=== PATIENT | female | born 1975 | race Caucasian/White ===

== ENCOUNTER 2018-03-22 06:45 | Inpatient (IN) | payer MEDICAID ==
[2018-03-22] MEDS ORDERED: CARBOPROST 250 MCG INJ IM ×2 (08:30→16:00)
[2018-03-22] MEDS ORDERED: IBUPROFEN 600 MG TAB PO (08:30)
[2018-03-22] MEDS ORDERED: BUTORPHANOL 2 MG INJ IV (08:30)
[2018-03-22] MEDS ORDERED: HYDROCODONE/APAP (5/325) TAB PO (08:30)
[2018-03-22] MEDS ORDERED: METHYLERGONOVINE 0.2 MG INJ IM ×2 (08:30→16:00)
[2018-03-22] MEDS ORDERED: MISOPROSTOL 200 MCG TAB PR ×2 (08:30→16:00)
[2018-03-22] MEDS ORDERED: LIDOCAINE 1% (MPF) 30 ML INJ INJ (08:30)
[2018-03-22] MEDS ORDERED: OXYTOCIN 30 UNITS/LR 500 ML IV ×4 (08:30→16:00)
[2018-03-22 08:32] LABS: ADD MAN DIFF? NO
[2018-03-22 08:36] LABS: WHITE BLOOD COUNT 6.9 10^3/ul (4.8-10.8)
[2018-03-22 08:36] LABS: BASOPHILS % 0.3 % (0.0-2.0); EOSINOPHILS % 0.1 % (0.0-7.0); HEMATOCRIT 36.5 % (37.0-47.0); HEMOGLOBIN 12.6 g/dl (12.0-16.0); LYMPHOCYTES # 2.1 10^3/ul (0.8-2.9); MEAN CORPUSCULAR HEMOGLOBIN 31.8 pg (29.0-33.0); MEAN CORPUSCULAR HGB CONC 34.5 g/dl (32.0-37.0); MEAN CORPUSCULAR VOLUME 92.2 fl (82.0-101.0); MEAN PLATELET VOLUME 12.1 fl (7.4-10.4); MONOCYTE # 0.5 10^3/ul (0.3-0.9); MONOCYTES % 7.8 % (0.0-11.0); NEUTROPHIL # 4.2 10^3/ul (1.6-7.5); NEUTROPHILS % 61.5 % (39.0-77.0); PLATELET COUNT 181 10^3/UL (140-415); RED BLOOD COUNT 3.96 10^6/ul (4.20-5.40); RED CELL DISTRIBUTION WIDTH 13.3 % (11.5-14.5)
[2018-03-22 08:43] LABS: PROTIME 12.2 Sec (11.9-14.9)
[2018-03-22 08:44] LABS: PARTIAL THROMBOPLASTIN TIME 29.8 Sec (25.0-35.0)
[2018-03-22] MEDS ORDERED: FENTAnyl 2MCG/ML-ROPIV 0.2% 100 ML (09:17)
[2018-03-22] MEDS: OXYTOCIN 30 UNITS/LR 500 ML IV ×2 (09:27→16:20)
[2018-03-22] MEDS: LACTATED RINGER'S 1,000 ML IV (09:29)
[2018-03-22] MEDS ORDERED: ONDANSETRON 4 MG INJ IV (13:30)
[2018-03-22] MEDS ORDERED: DIPHENHYDRAMINE 50 MG INJ IV (13:30)
[2018-03-22] MEDS ORDERED: NALOXONE (0.4 MG/ML) INJ IV (13:30)
[2018-03-22] MEDS ORDERED: FENTAnyl 2MCG/ML-ROPIV 0.2% 100 ML BAG EPI (13:30)
[2018-03-22] MEDS ORDERED: LACTATED RINGER'S 1,000 ML IV* (15:41)
[2018-03-22] MEDS: IBUPROFEN 600 MG TAB PO ×2 (18:45→23:39)
[2018-03-22 22:36] LABS: RAPID PLASMA REAGIN NONREACTIVE (NR)
[2018-03-23] MEDS: IBUPROFEN 600 MG TAB PO ×3 (05:36→18:00)
[2018-03-23] MEDS: HYDROCODONE/APAP (5/325) TAB PO (09:08)
[2018-03-23 10:31] LABS: ADD MAN DIFF? NO
[2018-03-23 10:35] LABS: WHITE BLOOD COUNT 8.9 10^3/ul (4.8-10.8)
[2018-03-23 10:35] LABS: BASOPHILS % 0.3 % (0.0-2.0); EOSINOPHILS # 0.2 10^3/ul (0.0-0.5); EOSINOPHILS % 1.7 % (0.0-7.0); HEMATOCRIT 35.1 % (37.0-47.0); HEMOGLOBIN 11.5 g/dl (12.0-16.0); LYMPHOCYTES # 2.6 10^3/ul (0.8-2.9); LYMPHOCYTES % 28.7 % (15.0-51.0); MEAN CORPUSCULAR HEMOGLOBIN 31.1 pg (29.0-33.0); MEAN CORPUSCULAR HGB CONC 32.8 g/dl (32.0-37.0); MEAN CORPUSCULAR VOLUME 94.9 fl (82.0-101.0); MONOCYTE # 0.7 10^3/ul (0.3-0.9); MONOCYTES % 8.3 % (0.0-11.0); NEUTROPHIL # 5.4 10^3/ul (1.6-7.5); NEUTROPHILS % 60.6 % (39.0-77.0); PLATELET COUNT 166 10^3/UL (140-415); RED CELL DISTRIBUTION WIDTH 13.7 % (11.5-14.5)
== END 2018-03-23 22:00 | disposition home or self-care (01) | DRG 775 ==
LOC: L-D 06:45 → PP1 17:51
PROVIDERS: Obstetrics & Gynecology
PROC: 10E0XZZ Delivery of Products of Conception, External Approach (ICD-10-PCS; principal; 2018-03-22 06:00)
DX: O80 Encounter for full-term uncomplicated delivery (principal); Z3A.39 39 weeks gestation of pregnancy; Z37.0 Single live birth
CPT/HCPCS: 62319; 85025; 85610; 85730; 86592; 86850; 86900; 86901

== ENCOUNTER 2018-04-28 22:01 | Emergency (ER) | payer MEDICAID ==
[2018-04-28 23:28] LABS: ADD MAN DIFF? NO
[2018-04-28 23:29] LABS: BASOPHIL # 0.1 10^3/ul (0.0-0.1); BASOPHILS % 0.6 % (0.0-2.0); EOSINOPHILS # 0.1 10^3/ul (0.0-0.5); EOSINOPHILS % 0.7 % (0.0-7.0); HEMOGLOBIN 13.6 g/dl (12.0-16.0); LYMPHOCYTES # 3.1 10^3/ul (0.8-2.9); LYMPHOCYTES % 34.8 % (15.0-51.0); MEAN CORPUSCULAR HEMOGLOBIN 31.4 pg (29.0-33.0); MEAN CORPUSCULAR HGB CONC 32.4 g/dl (32.0-37.0); MEAN PLATELET VOLUME 10.8 fl (7.4-10.4); MONOCYTE # 0.6 10^3/ul (0.3-0.9); MONOCYTES % 6.6 % (0.0-11.0); NEUTROPHILS % 57.1 % (39.0-77.0); PLATELET COUNT 293 10^3/UL (140-415); RED BLOOD COUNT 4.33 10^6/ul (4.20-5.40); RED CELL DISTRIBUTION WIDTH 14.5 % (11.5-14.5)
[2018-04-28 23:29] LABS: WHITE BLOOD COUNT 8.8 10^3/ul (4.8-10.8)
[2018-04-28] MEDS: SOD CHLORIDE 0.9% 1,000 ML IV (23:29)
== END 2018-04-29 01:10 | disposition home or self-care (01) ==
LOC: FTE 22:01
DX: O72.2 Delayed and secondary postpartum hemorrhage (principal)
CPT/HCPCS: 36415; 76830; 76856; 84702; 85025; 99285-25